=== PATIENT | male | born 1990 | race Caucasian/White ===

== ENCOUNTER → 2017-08-15 | Outpatient (CLI) | payer BC ==
[~2017-08-15] MED LIST: CIPR-255 PO; CYCL5TAB PO; IBUP-1450 PO; TESTOSTERONE IM
[2017-08-15 18:49] LABS: BASO % 0.3 %; BASO ABS # 0.03 K/uL (0-0.2); COMPLETE YES; EOS % 0.4 %; HEMATOCRIT 43.8 % (42-52); IG% 0.1 %; LYMPH % 17.9 %; LYMPH ABS # 1.82 K/uL (1.2-3.4); MEAN CELL VOLUME 90.7 fL (80-100); MEAN CORPUSCULAR HEMOGLOBIN 30.6 pg (25-34); MEAN CORPUSCULAR HGB CONC 33.8 g/dl (32-36); MEAN PLATELET VOLUME 9.7 fL (7.4-10.4); MONO % 7.3 %; PLATELET COUNT 337 K/uL (130-400); RED BLOOD COUNT 4.83 M/uL (4.7-6.1); WHITE BLOOD COUNT 10.15 K/uL (4.8-10.8)
[2017-08-15 19:13] LABS: BLOOD UREA NITROGEN 10 mg/dl (7-18); BUN/CREATININE RATIO 13.7 (10-20); CALCIUM 9.6 mg/dl (8.5-10.1); CARBON DIOXIDE 30 mmol/L (21-32); CHLORIDE 103 mmol/L (98-107); CREATININE 0.71 mg/dl (0.60-1.40); GLUCOSE 104 mg/dl (70-99); POTASSIUM 3.8 mmol/L (3.5-5.1); SODIUM 141 mmol/L (136-145)
[2017-08-15 19:19] LABS: PROTHROMBIN TIME (PATIENT) 10.6 SECONDS (9.0-12.0)
[2017-08-19 11:39] LABS: NICOTINE URINE <2 ng/mL
== END | disposition home or self-care (01) ==
LOC: C.LAB 17:31 → EDSEX 17:31
PROVIDERS: ATTEND Plastic Surgery
DX: Z01.812 Encounter for preprocedural laboratory examination (principal); F64.0 Transsexualism

== ENCOUNTER → 2017-08-22 | Day surgery (SDC) | payer BC ==
[2017-08-16 12:24] VITALS: Ht 158.8 cm; Wt 70.5 kg
[~2017-08-22] VITALS: Ht 158.8 cm; Wt 70.5 kg
[~2017-08-22] MED LIST changes: +CEFAZOLIN 2000MG IV PUSH 10 ML IV SCH; -CIPR-255 PO; -CYCL5TAB PO; -IBUP-1450 PO; +LACTATED RINGER'S 1000ML 1,000 ML IV SCH
== END | disposition home or self-care (01) ==
LOC: EDSEX → EDSTATUS 11:30 → C.PAT 12:09
PROVIDERS: ATTEND Plastic Surgery
DX: F64.0 Transsexualism (principal)

== ENCOUNTER → 2017-09-05 | Outpatient (CLI) | payer BC ==
[~2017-09-05] MED LIST changes: -CEFAZOLIN 2000MG IV PUSH 10 ML IV SCH; -LACTATED RINGER'S 1000ML 1,000 ML IV SCH
== END | disposition home or self-care (01) ==
LOC: C.LAB 16:08
PROVIDERS: ATTEND Physician Assistant
DX: Z01.818 Encounter for other preprocedural examination (principal); F64.0 Transsexualism

== ENCOUNTER 2017-09-18 09:16 | Day surgery (SDC) | payer BC ==
[2017-08-31 14:46] VITALS: BMI 27.0
[~2017-09-18] VITALS: Ht 160 cm; Wt 70.5 kg
[~2017-09-18 09:16] MED LIST changes: +CEFAZOLIN 1000MG IV PUSH 5 ML IV SCH; +FENTANYL CITRATE INJ 50 MCG/1 ML 2 ML VIAL ONE; +HYDROmorphone INJ 2 MG/ML SYR/VIAL ONE; +LACTATED RINGER'S 1000ML 1,000 ML IV SCH; +LIDOCAINE HCL 2% 2 ML VIAL (20MG/ML) ONE; +MIDAZOLAM HCL 1 MG/ML 2ML VIAL ONE; +PROPOFOL IV EMULSION 10 MG/ML 20 ML VIAL IV ONE
[2017-09-18 09:49] VITALS: BP 137/86; PULSE 72; TEMP 36.7; O2SAT 97; Ht 160 cm; Wt 70.5 kg
[2017-09-18] MEDS ORDERED: NURSING VERBAL MED ORDER ONE (10:45)
--- NOTE | 2017-09-18 10:46 | History & Physical Bridge Note ---
H&P Re-Evaluation Bridge Note: I have examined the patient, reviewed the History & Physical and in the interval since the performance of the History & Physical I have noted the following changes of clinical significance: No changes noted
[2017-09-18] MEDS ORDERED: CEFAZOLIN SOD 1000MG/5 ML IV PUSH IV ONE (10:48)
[2017-09-18] MEDS ORDERED: FENTANYL CITRATE INJ 50 MCG/1 ML 2 ML VIAL IV PRN (11:15)
[2017-09-18] MEDS ORDERED: HYDROmorphone INJ 1 MG/ML SYR IV PRN (11:15)
[2017-09-18] MEDS ORDERED: ONDANSETRON INJ 2 MG/ML 2 ML VIAL IV PRN ×2 (11:15→15:45)
[2017-09-18] MEDS ORDERED: EpHEDrine SULFATE INJ 50 MG/ML AMP IV PRN (11:15)
[2017-09-18] MEDS ORDERED: PROMETHAZINE HCL INJ 6.25 MG in SODIUM CHLORIDE 0.9% 50ML 50 ML IV PRN (11:15)
[2017-09-18] MEDS ORDERED: ATROPINE SULFATE 0.1 MG/ML 5ML SYR IV PRN (11:15)
[2017-09-18] MEDS ORDERED: BUPIVACAINE 0.25% 30 ML VIAL ONE (11:42)
[2017-09-18] MEDS ORDERED: LIDOCAINE/EPINEPHRINE 1% 20 ML VIAL ONE (11:45)
[2017-09-18] MEDS ORDERED: DEXAMETHASONE SOD INJ 4 MG/ML VIAL ONE (12:03)
[2017-09-18] MEDS ORDERED: RANITIDINE HCL 25 MG/ML INJ ONE (12:03)
[2017-09-18] MEDS ORDERED: ONDANSETRON INJ 2 MG/ML 2 ML VIAL ONE (12:03)
[2017-09-18] MEDS ORDERED: EpHEDrine SULFATE 50MG/5ML SYR ONE (12:43)
[2017-09-18] MEDS ORDERED: TISSEEL FIBRIN SEALANT 10ML TOP ONE (14:14)
[2017-09-18] MEDS ORDERED: FENTANYL CITRATE INJ 50 MCG/1 ML 2 ML VIAL ONE (14:18)
[2017-09-18] MEDS ORDERED: GLYCOPYRROLATE INJ 0.2 MG/ML VIAL ONE (14:20)
[2017-09-18] MEDS ORDERED: NEOSTIGMINE METHYLSULFATE 5 MG/5 ML SYR ONE (14:20)
[2017-09-18] MEDS ORDERED: SODIUM CHLORIDE 0.9% INJ 10 ML VIAL ONE (15:01)
[2017-09-18] MEDS ORDERED: CEFAZOLIN SOD 1 GM VIAL ONE (15:01)
--- NOTE | 2017-09-18 15:27 | [facility] Post Operative Brief Note ---
Immediate Operative Summary Operative Date Sep 18, 2017. Pre-Operative Diagnosis Adult Gender Dysmorphia Post-Operative Diagnosis Adult Gender Dysmorphia Procedure(s) Performed Bilateral Non-Cancerous Mastectomy Surgeon Dr. Karli Concepcion Collarette Separator Surgeon(s) Fallon Vidal PA-C Estimated Blood Loss 25 mL Findings dense breast tissue bilaterally Specimens A. Left Breast Tissue B. Right Breast Tissue Drains JPx2 Anesthesia GET Complication(s) None Disposition Recovery Room / PACU
[2017-09-18] MEDS ORDERED: SODIUM CHLORIDE 0.9% 1000ML 1,000 ML IV SCH (15:41)
--- NOTE | 2017-09-18 15:44 | Discharge Instructions ---
Discharge Instructions Date of Service Sep 18, 2017. Admission Reason for Admission: Gender Dysphoria/Female To Male Transgender Identi Discharge Discharge Diagnosis / Problem: gender dysphoria Discharge Goals Goal(s): Decrease discomfort, Improve function Activity Recommendations Activity Limitations: per Instructions/Follow-up section ACTIVITY RECOMMENDATIONS: __Normal activities _x_No bending, lifting or straining __No driving __Driving allowed when you are off pain medications _x_Walking permitted __You should have help at home for ___ days DRESSINGS: __No dressings required _x_Keep dressings dry/in place until first office visit __Remove dressings ___ and leave dressings off __Apply ice ___ days __Remove dressings and reapply garment __Apply antibiotic ointment (Bacitracin, Neosporin, etc) to wounds 3-4 times/ day for 10 days BATHING: _x_Keep dressings dry _x_Sponge bathing permitted away from incision area __Showering permitted _x_No swimming, hot tubs or soaking in a tub MEDICATIONS: Resume previous medications unless instructed otherwise by your surgeon. _x_Do not use aspirin, Motrin, Advil or Ibuprofen as these may promote bleeding. Please use Tylenol. _x_Prescription(s) provided: pain medication provided at your last office visit OTHER INSTRUCTIONS: _x_Record drain output 2-3 times per day, Call office when output is less than 10cc/day SPECIAL CARE INSTRUCTIONS: * It is normal to have a mild fever after surgery. If your temperature is higher than 101.5 degrees F, please call the office at [phone]. * Constipation is a typical side effect of pain medication. An over-the- counter stool softener will help relieve this. * Leaking around surgical drains may occur and should not cause concern. Sometimes these drains become clogged. If this happens, remove the bulb and milk the clot out of the tube, then replace the bulb. * Drainage from wounds after liposuction is normal and should be expected. Garments will become soiled. You should protect furniture and bedding. This drainage should mostly subside within 2-3 days. Leave garments in place unless instructed to remove them. * If you have unusual drainage from a wound or are concerned you have an infection or have any questions or concerns, please call the office at [phone]. FOLLOW UP VISIT: If not already scheduled, please call the office, , when you return home after surgery to schedule an appointment to be seen in __2_ days. . Current Hospital Diet Patient's current hospital diet: Discharge Diet Recommended Diet: Regular Diet Procedures Procedures Performed: Bilateral Non-Cancerous Mastectomy Pending Studies Studies pending at discharge: yes List of pending studies: pathology Medical Emergencies . Who to Call and When: Medical Emergencies: If at any time you feel your situation is an emergency, please call 911 immediately. . Non-Emergent Contact Non-Emergency issues call your: Primary Care Provider, Surgeon . "Provider Documentation" section prepared by Fallon Vidal. . VTE Core Measure Inpt VTE Proph given/why not?: SCD's [place] Drug Monitoring Program Search Results: no issues identified
[2017-09-18] MEDS ORDERED: OXYCODONE/ACETAMINOPHEN 5-325 TAB PO PRN ×2 (15:45)
[2017-09-18] MEDS ORDERED: METOCLOPRAMIDE HCL INJ 5 MG/ML 2 ML VIAL IV PRN (15:45)
[2017-09-18] MEDS ORDERED: ACETAMINOPHEN 325 MG TAB PO PRN (15:45)
--- NOTE | 2017-09-18 16:06 | Anesthesiology Progress Note ---
Anesthesia Post Op Note Date & Time Sep 18, 2017 at 16:05 Vital Signs Pain Intensity: 0 Vital Signs Past 12 Hours Date Time Temp Pulse Resp B/P (MAP) Pulse Ox O2 Delivery O2 Flow Rate FiO2 09/18/17 15:50 103 16 164/91 100 Oxymask 10 09/18/17 15:40 106 16 158/94 100 Oxymask 10 09/18/17 15:33 36.3 99 16 160/91 100 Oxymask 10 09/18/17 09:49 36.7 72 18 137/86 (103) 97 Room Air Notes Mental Status: alert / awake / arousable, participated in evaluation Pt Amnestic to Procedure: Yes Nausea / Vomiting: adequately controlled, improving with treatment Pain: adequately controlled Airway Patency, RR, SpO2: stable & adequate BP & HR: stable & adequate Hydration State: stable & adequate Anesthetic Complications: no major complications apparent
[2017-09-18 16:30] VITALS: BP 166/93; PULSE 99; TEMP 36.5; O2SAT 94
[2017-09-18 17:00] VITALS: BP 133/79; PULSE 95; TEMP 36.5; O2SAT 98
--- NOTE | 2017-09-18 18:48 | OPERATIVE REPORT ---
DATE OF OPERATION: 09/18/2017 PREOPERATIVE DIAGNOSIS: Gender dysphoria. POSTOPERATIVE DIAGNOSIS: Same. PROCEDURE: Bilateral noncancerous mastectomy. SURGEON: Karli Concepcion MD. MILITARY EDUCATION COORDINATOR: Fallon Vidal PA-C. ANESTHESIA: General. COMPLICATIONS: None. INDICATION FOR THE PROCEDURE: The patient is a 27-year-old transgender male who had experienced gender dysphoria since childhood. He had undergone appropriate workup and psychiatric evaluation as well as received necessary hormone treatment in order to be considered a surgical candidate. He is currently identified legally as male and is referred to as Denny both by family and employer. He desired to undergo mastectomy as a gender conforming surgery. He is very concerned about visible scarring and therefore we discussed using an inferior areolar incision trying to minimize additional scarring on the chest. We discussed that this may result in skin excess and the need for further revision surgery. BRIEF DESCRIPTION OF THE PROCEDURE: The risks, benefits and alternatives of the procedure were explained to the patient who agreed and signed consent. He was identified and marked in the preoperative holding area. He was brought to the operating room where he was positioned supine and placed under anesthesia without incident. Surgical site was prepped and draped sterilely. A time-out procedure was performed. I began with the left side. Surgical markings were reassessed. I initially marked the incision to be along the inferior aspect of the nipple areolar complex without any extension on to the chest wall. Breast parenchyma as well as the incision were injected with 1% lidocaine with epinephrine. A 15 blade scalpel was used to make the incision in the inferior aspect of the areola. Electrocautery was used to deepen the incision through the underlying dermis. I then began elevation of the nipple areolar complex, leaving about 2 cm of underlying breast tissue to provide some projection to the nipple. The underlying breast tissue was resected using electrocautery. This was performed along the superficial fascial plane along the inferior aspect of the breast down to the inframammary fold. This was performed using an Allis clamp and electrocautery and was performed in somewhat of a piecemeal fashion. Once reaching the inframammary fold, the fold was dissected using electrocautery to dissect beyond it and remove this anatomic landmark. I then performed medial, superior, and lateral excision of underlying breast tissue leaving about 2 cm of breast tissue at the nipple and superiorly in order to provide some contour to the pectoralis muscle and prevent contour irregularity. Once I felt, I removed as much residual breast parenchyma as possible, a curved Neves scissor was used to perform some additional direct resection and provide improved contour. Hemostasis was achieved with electrocautery. Wound was irrigated with saline. Inframammary fold was as mentioned reexamined and elevated as needed. A 15 Norwegian Joseph drain was placed into the wound bed and carried out through a separate stab incision. It was sutured into place using 3-0 nylon. I then felt there was some inferior skin excess that I was concerned would now retract on its own and therefore approximately 1 cm of additional skin inferior to the nipple was resected. This resulted in 2 small standing cutaneous deformities on either side of the nipple which resulted in a small excision on to the chest wall measuring less than 1 cm each. 3-0 Vicryl suture was placed to temporarily tack the nipple areolar complex back into position. The patient was placed in a seated position and I was satisfied with the resection. He was then placed supine again and 2.5 mL of Tisseel was sprayed into the pocket and manual pressure was held to promote adherence. 3-0 Vicryl interrupted sutures were placed in the deep dermis followed by a 4-0 Monocryl running subcuticular suture. The specimen was passed off for pathology. Dermabond was applied. A similar procedure was undertaken on the right side. Wendell foam was placed over both surgical sites and an abdominal binder was placed. Prior to placing the dressings, the patient was again placed in seated position and there was some excess skin overall, there was significant improvement in contour. The patient was awakened and transferred to recovery in satisfactory condition. Fallon Vidal PA-C was present and scrubbed throughout the entire procedure and was instrumental in assisting in retraction, hemostasis, and simultaneous wound closure. It should be noted that the preoperative diagnosis is listed in [facility] as gender dysmorphia and it should be gender dysphoria. I attest to the content of the Intraoperative Record and any orders documented therein. Any exception s are noted below.
== END 2017-09-18 17:00 | disposition home or self-care (01) ==
LOC: C.ACU 09:16
PROVIDERS: ATTEND Plastic Surgery
DX: F64.0 Transsexualism (principal); F12.90 Cannabis use, unspecified, uncomplicated; F17.220 Nicotine dependence, chewing tobacco, uncomplicated